=== PATIENT | female | born 1950 | race Two or more races ===

== ENCOUNTER → 2019-11-27 | Day surgery (SDC) | payer MEDICARE, MEDICAID ==
[2019-11-26 14:32] LABS: Basophils # (auto) 0.1 10 ^3/uL (0-0.2); Basophils % (auto) 0.5 % (0.0-2.0); Eosinophils # (auto) 0 10 ^3/uL (0-0.8); Eosinophils % (auto) 0.4 % (0.0-7.0); Hemoglobin 12.2 g/dL (12.2-16.2); Lymphocytes % (auto) 15.9 % (10.0-50.0); Mean Corpuscular Hemoglobin 31.7 pg (28.0-32.0); Mean Corpuscular Hgb Conc. 33.9 g/dL (32.0-36.0); Mean Corpuscular Volume 93.5 fL (80.0-100.0); Monocytes # (auto) 0.9 10 ^3/uL (0-1.3); Monocytes % (auto) 7.3 % (0.0-12.0); Neutrophils # (auto) 9.5 10 ^3/uL (1.6-8.6); Neutrophils % (auto) 75.9 % (37.0-80.0); Platelet Count (auto) 201 10^3/uL (140-450); Red Blood Cells 3.86 10^6/uL (4.0-5.20); Red Cell Distribution Width 13.9 % (11.8-14.3); White Blood Cell 12.5 10^3/uL (4.4-10.8)
[2019-11-26 14:51] LABS: INR 1.04 (0.9-1.15); Partial Thromboplastin Time 32.5 sec (23.64-32.05)
[~2019-11-27] VITALS: Ht 170.2 cm; Wt 78.9 kg
[~2019-11-27] MED LIST: CALC0.5C PO; ESCI10TA PO; LEVO150C2 PO; LIDOCAINE VISCOUS 2% 15ML UD ONE; MIDAZOLAM HCL 5 MG/ML-1ML VIAL ONE; PANT40TA2 PO; SODIUM CHLORIDE LOCK 10 ML ONE; diphenhdrAMINE HCL 50 MG/1 ML VL ONE; fentaNYL CITRATE 100 MCG/2 ML VL ONE
[2019-11-27 10:20] VITALS: BP 104/63
== END | disposition home or self-care (01) ==
LOC: GI 08:41
PROVIDERS: ATTEND Internal Medicine Gastroenterology
DX: K29.50 Unspecified chronic gastritis without bleeding (principal); K44.9 Diaphragmatic hernia without obstruction or gangrene; Z98.890 Other specified postprocedural states; Z88.8 Allergy status to other drugs, medicaments and biological substances; Z85.850 Personal history of malignant neoplasm of thyroid; Z79.899 Other long term (current) drug therapy
CPT/HCPCS: 36415; 43239; 85025; 85610; 85730; 88305; 88342; J1200; J2250; J3010; J7030

== ENCOUNTER → 2019-12-25 | Outpatient (CLI) | payer MEDICARE, MEDICAID ==
[~2019-12-25] MED LIST changes: -LIDOCAINE VISCOUS 2% 15ML UD ONE; -MIDAZOLAM HCL 5 MG/ML-1ML VIAL ONE; -SODIUM CHLORIDE LOCK 10 ML ONE; -diphenhdrAMINE HCL 50 MG/1 ML VL ONE; -fentaNYL CITRATE 100 MCG/2 ML VL ONE
[2019-12-25 14:14] LABS: Basophils # (auto) 0.1 10 ^3/uL (0-0.2); Basophils % (auto) 0.9 % (0.0-2.0); Eosinophils # (auto) 0.2 10 ^3/uL (0-0.8); Eosinophils % (auto) 2.8 % (0.0-7.0); Hematocrit 37.8 % (36.0-46.0); Hemoglobin 12.8 g/dL (12.2-16.2); Lymphocytes # (auto) 2.6 10 ^3/uL (0.4-5.4); Lymphocytes % (auto) 40.1 % (10.0-50.0); Mean Corpuscular Hemoglobin 31.6 pg (28.0-32.0); Mean Corpuscular Hgb Conc. 33.8 g/dL (32.0-36.0); Mean Corpuscular Volume 93.4 fL (80.0-100.0); Monocytes # (auto) 0.4 10 ^3/uL (0-1.3); Monocytes % (auto) 6.5 % (0.0-12.0); Neutrophils # (auto) 3.2 10 ^3/uL (1.6-8.6); Neutrophils % (auto) 49.7 % (37.0-80.0); Platelet Count (auto) 221 10^3/uL (140-450); Red Blood Cells 4.04 10^6/uL (4.0-5.20); Red Cell Distribution Width 14.6 % (11.8-14.3); White Blood Cell 6.4 10^3/uL (4.4-10.8)
[2019-12-25 14:23] LABS: Urine Bacteria FEW /hpf (None Seen); Urine Blood Negative /uL (Negative); Urine Specific Gravity 1.004 (1.001-1.035); Urine WBC 5 /hpf (0 - 5)
[2019-12-25 14:28] LABS: Albumin 3.5 g/dL (3.4-5.0); Calcium 9.3 mg/dL (8.5-10.1)
[2019-12-25 14:30] LABS: BUN/Creatinine Ratio 11.8
[2019-12-25 14:33] LABS: Bilirubin, Total 0.4 mg/dL (0.2-1.0); Total Protein 7.4 g/dL (6.4-8.2)
== END | disposition home or self-care (01) ==
LOC: LAB 14:02
PROVIDERS: ATTEND Internal Medicine Gastroenterology
DX: R19.7 Diarrhea, unspecified (principal); R10.9 Unspecified abdominal pain
CPT/HCPCS: 36415; 80053; 81001; 85025; 87086

== ENCOUNTER → 2020-02-26 | Outpatient (CLI) | payer MEDICARE, MEDICAID ==
[2020-02-26 15:35] LABS: Urine Bacteria NONE SEEN /hpf (None Seen); Urine Blood Negative /uL (Negative); Urine Mucus FEW (None Seen); Urine Specific Gravity 1.018 (1.001-1.035); Urine WBC 12 /hpf (0 - 5)
== END | disposition home or self-care (01) ==
LOC: LAB 14:59
PROVIDERS: ATTEND Internal Medicine Gastroenterology
DX: N39.0 Urinary tract infection, site not specified (principal)
CPT/HCPCS: 81001

== ENCOUNTER 2022-03-07 15:43 | Emergency (ER) | payer MEDICARE, MEDICAID ==
[~2022-03-07] VITALS: Ht 170.2 cm; Wt 75.1 kg
[2022-03-07 16:42] LABS: Basophils # (auto) 0 10 ^3/uL (0-0.2); Basophils % (auto) 0.8 % (0.0-2.0); Eosinophils # (auto) 0.1 10 ^3/uL (0-0.8); Eosinophils % (auto) 1.4 % (0.0-7.0); Hematocrit 38.8 % (36.0-46.0); Hemoglobin 12.5 g/dL (12.2-16.2); Lymphocytes # (auto) 1.7 10 ^3/uL (0.4-5.4); Lymphocytes % (auto) 30.9 % (10.0-50.0); Mean Corpuscular Hgb Conc. 32.3 g/dL (32.0-36.0); Mean Corpuscular Volume 92.9 fL (80.0-100.0); Monocytes # (auto) 0.4 10 ^3/uL (0-1.3); Monocytes % (auto) 8.1 % (0.0-12.0); Neutrophils # (auto) 3.2 10 ^3/uL (1.6-8.6); Neutrophils % (auto) 58.8 % (37.0-80.0); Nucleated Red Blood Cells % 0.1 %; Red Blood Cells 4.17 10^6/uL (4.0-5.20); Red Cell Distribution Width 14.2 % (11.8-14.3); White Blood Cell 5.5 10^3/uL (4.4-10.8)
[2022-03-07 17:06] LABS: Albumin 3.7 g/dL (3.4-5.0); BUN/Creatinine Ratio 13.1; Calcium 8.8 mg/dL (8.5-10.1); Magnesium 2.4 mg/dL (1.6-2.6); Potassium 4.2 mmol/L (3.5-5.1)
[2022-03-07 17:07] LABS: Urine Bacteria NONE SEEN /hpf (None Seen); Urine Blood Negative /uL (Negative); Urine Hyaline Cast FEW /lpf (0 - 2); Urine Specific Gravity 1.011 (1.001-1.035); Urine WBC 7 /hpf (0 - 5)
[2022-03-07 17:09] LABS: Bilirubin, Total 0.3 mg/dL (0.2-1.0); Total Protein 7.2 g/dL (6.4-8.2)
[2022-03-07 20:00] VITALS: BP 139/81
== END 2022-03-07 21:57 | disposition home or self-care (01) ==
LOC: ER 15:43
DX: R53.1 Weakness (principal); E78.5 Hyperlipidemia, unspecified; Z88.6 Allergy status to analgesic agent
CPT/HCPCS: 36415; 80053; 81001; 83735; 84484; 85025; 93005

== ENCOUNTER 2022-10-12 19:57 | Inpatient (IN) | payer MEDICARE, MEDICAID ==
[~2022-10-12] VITALS: Ht 170.2 cm; Wt 81.8 kg
[2022-10-12 21:11] LABS: Urine Bacteria NONE SEEN /hpf (None Seen); Urine Blood TRACE /uL (Negative); Urine Specific Gravity 1.007 (1.001-1.035); Urine WBC 33 /hpf (0 - 5)
[2022-10-12 22:10] LABS: Basophils # (auto) 0.1 10 ^3/uL (0-0.2); Basophils % (auto) 0.4 % (0.0-2.0); Eosinophils # (auto) 0.1 10 ^3/uL (0-0.8); Eosinophils % (auto) 0.8 % (0.0-7.0); Hematocrit 37.6 % (36.0-46.0); Hemoglobin 12.8 g/dL (12.2-16.2); Lymphocytes # (auto) 2.4 10 ^3/uL (0.4-5.4); Lymphocytes % (auto) 15.4 % (10.0-50.0); Mean Corpuscular Hemoglobin 31.7 pg (28.0-32.0); Mean Corpuscular Hgb Conc. 34.1 g/dL (32.0-36.0); Mean Corpuscular Volume 92.9 fL (80.0-100.0); Monocytes # (auto) 1.1 10 ^3/uL (0-1.3); Monocytes % (auto) 7.2 % (0.0-12.0); Neutrophils % (auto) 76.2 % (37.0-80.0); Nucleated Red Blood Cells % 0.2 %; Red Blood Cells 4.05 10^6/uL (4.0-5.20); Red Cell Distribution Width 13.5 % (11.8-14.3); White Blood Cell 15.7 10^3/uL (4.4-10.8)
[2022-10-12 22:23] LABS: Alanine Aminotransferase 29 U/L (13-56); Albumin 3.5 g/dL (3.4-5.0); Anion Gap 5 (5-15); Aspartate Aminotransferase 22 U/L (15-37); BUN/Creatinine Ratio 13.7; Blood Urea Nitrogen 40 mg/dL (7-18); Carbon Dioxide 36 mmol/L (21-32); Chloride 98 mmol/L (98-107); GFR African American 20 mL/min; GFR Non-African American 17 mL/min; Glucose 124 mg/dL (74-106); Lipase 264 U/L (73-393); Potassium 3.8 mmol/L (3.5-5.1); Sodium 139 mmol/L (136-145)
[2022-10-12 22:26] LABS: Alkaline Phosphatase 65 U/L (45-117); Bilirubin, Total 0.3 mg/dL (0.2-1.0); Total Protein 7.8 g/dL (6.4-8.2)
[2022-10-12 22:47] LABS: Calcium 18.7 mg/dL (8.5-10.1)
[2022-10-13] MEDS ORDERED: FUROSEMIDE 100 MG/10ML VIAL IV ONE (01:15)
[2022-10-13] MEDS ORDERED: ACETAMINOPHEN 325 MG TAB PO ONE (03:00)
[2022-10-13] MEDS ORDERED: NITROGLYCERIN 0.4 MG SL TAB SL PRN (07:15)
[2022-10-13] MEDS ORDERED: cefTRIAXone 1GM/50ML D5W 50 ML IV ONE (07:15)
[2022-10-13] MEDS ORDERED: ONDANSETRON HCL 4 MG/2 ML VIAL IV PRN (07:15)
[2022-10-13] MEDS ORDERED: DOCUSATE SOD 100 MG CAP PO PRN (07:15)
[2022-10-13] MEDS ORDERED: MORPHINE SULFATE INJ 2 MG/ml SYRG IV PRN ×2 (07:15)
[2022-10-13 08:08] LABS: Basophils # (auto) 0.1 10 ^3/uL (0-0.2); Basophils % (auto) 0.5 % (0.0-2.0); Eosinophils # (auto) 0.2 10 ^3/uL (0-0.8); Eosinophils % (auto) 1.4 % (0.0-7.0); Hematocrit 38.8 % (36.0-46.0); Hemoglobin 13.2 g/dL (12.2-16.2); Lymphocytes # (auto) 2.2 10 ^3/uL (0.4-5.4); Lymphocytes % (auto) 17.7 % (10.0-50.0); Mean Corpuscular Hemoglobin 31.5 pg (28.0-32.0); Mean Corpuscular Hgb Conc. 33.9 g/dL (32.0-36.0); Mean Corpuscular Volume 92.9 fL (80.0-100.0); Monocytes % (auto) 7.9 % (0.0-12.0); Neutrophils # (auto) 9.1 10 ^3/uL (1.6-8.6); Neutrophils % (auto) 72.5 % (37.0-80.0); Red Blood Cells 4.18 10^6/uL (4.0-5.20); Red Cell Distribution Width 13.7 % (11.8-14.3); White Blood Cell 12.6 10^3/uL (4.4-10.8)
[2022-10-13 08:34] LABS: Albumin 3.9 g/dL (3.4-5.0); Potassium 3.8 mmol/L (3.5-5.1)
[2022-10-13 08:38] LABS: BUN/Creatinine Ratio 14.6; Bilirubin, Total 0.4 mg/dL (0.2-1.0); Total Protein 7.7 g/dL (6.4-8.2)
[2022-10-13 08:59] LABS: Calcium 16.2 mg/dL (8.5-10.1)
[2022-10-13] MEDS: SODIUM CHLORIDE 0.9% 1,000 ML IV SCH ×2 (09:27→23:55)
[2022-10-13] MEDS: cefTRIAXone 1GM/50ML D5W 50 ML IV SCH (09:27)
[2022-10-13] MEDS: FAMOTIDINE (10MG/ML) 2ML VL IV SCH (10:49)
[2022-10-13] MEDS: FUROSEMIDE 40 MG/4 ML VIAL IV SCH (10:49)
[2022-10-13] MEDS ORDERED: DIPH25CA29 PO (18:35)
[2022-10-13 20:00] VITALS: BP 124/75
[2022-10-13 20:12] LABS: BUN/Creatinine Ratio 15.9; Potassium 4.1 mmol/L (3.5-5.1)
[2022-10-13 20:15] LABS: Calcium 15.9 mg/dL (8.5-10.1)
[2022-10-13 21:24] LABS: Protein, Urine 21.5 mg/dL (0.0-11.9)
[2022-10-13 21:31] LABS: Urine Bacteria NONE SEEN /hpf (None Seen); Urine Blood Negative /uL (Negative); Urine Hyaline Cast MOD /lpf (0 - 2); Urine Specific Gravity 1.009 (1.001-1.035); Urine WBC 9 /hpf (0 - 5)
[2022-10-13 22:00] VITALS: BP 154/79
[2022-10-14 05:00] VITALS: BP 129/67
[2022-10-14 07:06] LABS: Basophils # (auto) 0 10 ^3/uL (0-0.2); Basophils % (auto) 0.4 % (0.0-2.0); Eosinophils # (auto) 0.1 10 ^3/uL (0-0.8); Eosinophils % (auto) 1.4 % (0.0-7.0); Hematocrit 38.1 % (36.0-46.0); Lymphocytes # (auto) 2.2 10 ^3/uL (0.4-5.4); Lymphocytes % (auto) 21.4 % (10.0-50.0); Mean Corpuscular Hemoglobin 31.8 pg (28.0-32.0); Mean Corpuscular Hgb Conc. 34.2 g/dL (32.0-36.0); Monocytes # (auto) 0.6 10 ^3/uL (0-1.3); Monocytes % (auto) 6.2 % (0.0-12.0); Neutrophils # (auto) 7.4 10 ^3/uL (1.6-8.6); Neutrophils % (auto) 70.6 % (37.0-80.0); Red Blood Cells 4.09 10^6/uL (4.0-5.20); Red Cell Distribution Width 13.8 % (11.8-14.3); White Blood Cell 10.4 10^3/uL (4.4-10.8)
[2022-10-14 07:19] LABS: Albumin 3.6 g/dL (3.4-5.0); Anion Gap 6 (5-15); Blood Urea Nitrogen 50 mg/dL (7-18); Carbon Dioxide 36 mmol/L (21-32); Chloride 97 mmol/L (98-107); Glucose 114 mg/dL (74-106); Potassium 3.2 mmol/L (3.5-5.1); Sodium 139 mmol/L (136-145)
[2022-10-14 07:22] LABS: Alanine Aminotransferase 26 U/L (13-56); Alkaline Phosphatase 63 U/L (45-117); Aspartate Aminotransferase 18 U/L (15-37); BUN/Creatinine Ratio 16.2; Bilirubin, Direct < 0.1 mg/dL (0-0.2); Bilirubin, Total 0.4 mg/dL (0.2-1.0); GFR African American 19 mL/min; GFR Non-African American 16 mL/min; Total Protein 7.6 g/dL (6.4-8.2); Uric Acid 8.9 mg/dL (2.6-6.0)
[2022-10-14 07:31] LABS: Calcium 14.5 mg/dL (8.5-10.1)
[2022-10-14 08:00] VITALS: BP 129/67
[2022-10-14 09:00] VITALS: BP 131/75
[2022-10-14] MEDS: FAMOTIDINE (10MG/ML) 2ML VL IV SCH (09:34)
[2022-10-14] MEDS: FUROSEMIDE 40 MG/4 ML VIAL IV SCH (09:35)
[2022-10-14] MEDS: cefTRIAXone 1GM/50ML D5W 50 ML IV SCH (09:43)
[2022-10-14 13:00] VITALS: BP 134/66
[2022-10-14] MEDS ORDERED: FUROSEMIDE 40 MG/4 ML VIAL IV ONE (14:15)
[2022-10-14 17:00] VITALS: BP 154/70
[2022-10-14] MEDS: SODIUM CHLORIDE 0.9% 1,000 ML IV SCH (17:30)
[2022-10-14] MEDS ORDERED: LEVOTHYROXINE SODIUM 100 MCG TAB PO ONE (17:45)
[2022-10-14 22:00] VITALS: BP 159/93
[2022-10-14] MEDS: hydrALAZINE HCL 20 MG/ML VL IV PRN (22:34)
[2022-10-14] MEDS: TEMAZEPAM 15 MG CAP PO PRN (23:19)
[2022-10-14 23:52] LABS: Alcohol, Urine < 3.0 mg/dL (0-10); Amphetamine Screen, Urine NEGATIVE (NEGATIVE); Barbiturate Scree,Urine NEGATIVE (NEGATIVE); Benzodiazephine Screen, Urine NEGATIVE (NEGATIVE); Cannabinoid Screen, Urine NEGATIVE (NEGATIVE); Cocaine Screen, Urine NEGATIVE (NEGATIVE); Opiate Scree,Urine NEGATIVE (NEGATIVE); Phencyclidine Screen, Urine NEGATIVE (NEGATIVE)
[2022-10-15 05:00] VITALS: BP 141/71
[2022-10-15] MEDS: SODIUM CHLORIDE 0.9% 1,000 ML IV SCH ×3 (05:49→16:51)
[2022-10-15] MEDS ORDERED: LEVOTHYROXINE SODIUM 100 MCG TAB PO SCH (07:00)
[2022-10-15 08:00] VITALS: BP 129/54
[2022-10-15] MEDS: FUROSEMIDE 40 MG/4 ML VIAL IV SCH (09:28)
[2022-10-15] MEDS: cefTRIAXone 1GM/50ML D5W 50 ML IV SCH (09:29)
[2022-10-15] MEDS: FAMOTIDINE (10MG/ML) 2ML VL IV SCH (09:29)
[2022-10-15] MEDS ORDERED: PAMIDRONATE DISODIUM 90 MG in SOD CHL 0.45% 1,000 ML IV ONE (10:15)
[2022-10-15 11:10] LABS: Potassium 3.2 mmol/L (3.5-5.1)
[2022-10-15 11:15] LABS: Albumin 3.6 g/dL (3.4-5.0); BUN/Creatinine Ratio 15.2; Bilirubin, Total 0.4 mg/dL (0.2-1.0); Calcium 11.4 mg/dL (8.5-10.1); Total Protein 7.2 g/dL (6.4-8.2)
[2022-10-15 12:00] VITALS: BP 122/73
[2022-10-15 16:00] VITALS: BP 130/90
[2022-10-15 22:00] VITALS: BP 124/61
[2022-10-15] MEDS ORDERED: CALCITONIN 400unit/2ml Vial (200unit/ml) SC SCH (22:00)
[2022-10-16] MEDS: ACETAMINOPHEN 325 MG TAB PO PRN (01:30)
[2022-10-16] MEDS: SODIUM CHLORIDE 0.9% 1,000 ML IV SCH ×4 (03:18→23:24)
[2022-10-16 05:00] VITALS: BP 101/51
[2022-10-16] MEDS: LEVOTHYROXINE SODIUM 112 MCG TAB PO SCH (06:12)
[2022-10-16 06:20] LABS: Albumin 3.1 g/dL (3.4-5.0); Calcium 10.3 mg/dL (8.5-10.1)
[2022-10-16 06:25] LABS: Bilirubin, Total 0.2 mg/dL (0.2-1.0); Total Protein 6.4 g/dL (6.4-8.2)
[2022-10-16 06:37] LABS: Potassium 2.6 mmol/L (3.5-5.1)
[2022-10-16] MEDS ORDERED: POTASSIUM CHL 20 Meq TABLET PO ONE (06:45)
[2022-10-16 08:08] LABS: Immunoglobulin G, Serum 1284 mg/dL (586-1602)
[2022-10-16 09:00] VITALS: BP 149/52
[2022-10-16] MEDS: FAMOTIDINE (10MG/ML) 2ML VL IV SCH (09:12)
[2022-10-16] MEDS: cefTRIAXone 1GM/50ML D5W 50 ML IV SCH (09:12)
[2022-10-16 13:19] VITALS: BP 142/69
[2022-10-16] MEDS: hydrALAZINE HCL 20 MG/ML VL IV PRN (21:16)
[2022-10-16 22:00] VITALS: BP 156/76
[2022-10-16] MEDS: TEMAZEPAM 15 MG CAP PO PRN (22:13)
[2022-10-16] MEDS ORDERED: CITALOPRAM HYDROBR 20 MG TAB PO SCH (23:15)
[2022-10-17 05:00] VITALS: BP 139/67
[2022-10-17] MEDS: LEVOTHYROXINE SODIUM 112 MCG TAB PO SCH (06:04)
[2022-10-17] MEDS: SODIUM CHLORIDE 0.9% 1,000 ML IV SCH (06:19)
[2022-10-17] MEDS ORDERED: ESCITALOPRAM 10 MG TABLETS PO ONE (06:30)
[2022-10-17 06:52] LABS: Albumin 2.9 g/dL (3.4-5.0); BUN/Creatinine Ratio 12.4; Bilirubin, Total 0.3 mg/dL (0.2-1.0); Calcium 8.7 mg/dL (8.5-10.1); Total Protein 5.6 g/dL (6.4-8.2)
[2022-10-17 09:10] VITALS: BP 152/68
[2022-10-17] MEDS: cefTRIAXone 1GM/50ML D5W 50 ML IV SCH (09:13)
[2022-10-17] MEDS: ACETAMINOPHEN 325 MG TAB PO PRN (09:14)
[2022-10-17] MEDS: FAMOTIDINE (10MG/ML) 2ML VL IV SCH (09:14)
[2022-10-17] MEDS ORDERED: POTASSIUM CHL 20 Meq TABLET PO ONE (09:30)
[2022-10-17] MEDS ORDERED: LOPERAMIDE HCL 2 MG CAP/TAB PO ONE (11:45)
[2022-10-17 11:55] VITALS: BP 152/72
[2022-10-17 13:00] VITALS: BP 162/70
== END 2022-10-17 15:52 | disposition home or self-care (01) | DRG 872 ==
LOC: ER 19:57 → TELE 10-13 07:09 → TELE-CENTR 10-13 17:42
PROVIDERS: ADMIT Nurse Practitioner Family; ATTEND Family Medicine
DX: A41.9 Sepsis, unspecified organism (principal); N17.9 Acute kidney failure, unspecified; N39.0 Urinary tract infection, site not specified; E87.0 Hyperosmolality and hypernatremia; E83.52 Hypercalcemia; K52.9 Noninfective gastroenteritis and colitis, unspecified; K57.90 Diverticulosis of intestine, part unspecified, without perforation or abscess without bleeding; E89.0 Postprocedural hypothyroidism; N18.9 Chronic kidney disease, unspecified; G40.909 Epilepsy, unspecified, not intractable, without status epilepticus; E87.6 Hypokalemia; Z60.2 Problems related to living alone; I12.9 Hypertensive chronic kidney disease with stage 1 through stage 4 chronic kidney disease, or unspecified chronic kidney disease; E78.00 Pure hypercholesterolemia, unspecified; Z20.822 Contact with and (suspected) exposure to COVID-19; E78.5 Hyperlipidemia, unspecified; Z88.5 Allergy status to narcotic agent; Z80.0 Family history of malignant neoplasm of digestive organs; Z82.49 Family history of ischemic heart disease and other diseases of the circulatory system; Z85.850 Personal history of malignant neoplasm of thyroid; Z87.19 Personal history of other diseases of the digestive system; Z90.49 Acquired absence of other specified parts of digestive tract
CPT/HCPCS: 36415; 74176; 80048; 80053; 80076; 80307; 80320; 81001; 82306; 82330; 82570; 82652; 82784; 83690; 83883; 83970; 84155; 84156; 84165; 84166; 84300; 84443; 84484; 84550; 85025; 86334; 87040; 87086; 87426; 93005; 96361; 96374; 96375; G0378; J0696; J3490

== ENCOUNTER → 2022-12-06 | Outpatient (CLI) | payer MEDICARE, MEDICAID ==
[~2022-12-06] MED LIST changes: +DIPH25CA29 PO
[2022-12-06 14:46] LABS: Urine Bacteria NONE SEEN /hpf (None Seen); Urine Blood Negative /uL (Negative); Urine Specific Gravity 1.007 (1.001-1.035); Urine WBC <1 /hpf (0 - 5)
== END | disposition home or self-care (01) ==
LOC: LAB 14:26
PROVIDERS: ATTEND Urology
DX: N39.0 Urinary tract infection, site not specified (principal)
CPT/HCPCS: 81001; 87086

== ENCOUNTER 2023-03-07 18:27 | Emergency (ER) | payer MEDICARE, MEDICAID ==
[~2023-03-07] VITALS: Ht 170.2 cm; Wt 79.1 kg
[~2023-03-07 18:27] MED LIST changes: +DIPH-753 PO; -DIPH25CA29 PO
[2023-03-07] MEDS ORDERED: HYDROcodone-ACET 5/325MG TAB PO ONE (20:30)
[2023-03-07] MEDS ORDERED: ONDANSETRON ODT 4 MG TAB PO ONE (20:30)
[2023-03-07] MEDS ORDERED: IPRATROPIUM BROM 0.5 MG/2.5ML INH SOL NEB ONE (21:00)
[2023-03-07] MEDS ORDERED: ALBUTEROL SULF 2.5 MG/0.5ML(0.5%) NEB SOLN NEB ONE (21:00)
[2023-03-07] MEDS ORDERED: DexAMETHasone SOD PHOS 10MG/1ML VIAL INJ IM ONE (21:00)
[2023-03-07 22:26] VITALS: BP 113/73
[2023-03-07] MEDS ORDERED: HYDR-4902 PO (22:28)
[2023-03-07] MEDS ORDERED: AZITTAB PO (22:28)
[2023-03-07] MEDS ORDERED: ZOFR4T PO (22:28)
[2023-03-07] MEDS ORDERED: PRED20TA2 PO (22:28)
== END 2023-03-07 22:40 | disposition home or self-care (01) ==
LOC: ER 18:27
DX: U07.1 COVID-19 (principal); J12.82 Pneumonia due to coronavirus disease 2019; J45.909 Unspecified asthma, uncomplicated; E78.5 Hyperlipidemia, unspecified; I10 Essential (primary) hypertension
CPT/HCPCS: 36415; 70450; 71045; 87426; 94640; 96372; 99285; J1100; J7644; Q0162

== ENCOUNTER 2023-06-06 10:34 | Day surgery (SDC) | payer MEDICARE, MEDICAID ==
[2023-06-04 15:10] LABS: Urine Bacteria NONE SEEN /hpf (None Seen); Urine Blood TRACE /uL (Negative); Urine Clarity Clear (Clear); Urine Color Yellow (Yellow); Urine Protein, UAD Negative (Negative); Urine Specific Gravity 1.014 (1.001-1.035); Urine Urobilinogen Normal (Negative); Urine WBC 1 /hpf (0 - 5); Urine pH 5.5 (5.0-8.0)
[2023-06-04 15:13] LABS: Basophils # (auto) 0 10 ^3/uL (0-0.2); Basophils % (auto) 0.8 % (0.0-2.0); Eosinophils # (auto) 0.2 10 ^3/uL (0-0.8); Eosinophils % (auto) 3.1 % (0.0-7.0); Hematocrit 39.1 % (36.0-46.0); Hemoglobin 13.2 g/dL (12.2-16.2); Lymphocytes # (auto) 2.1 10 ^3/uL (0.4-5.4); Lymphocytes % (auto) 35.8 % (10.0-50.0); Mean Corpuscular Hemoglobin 31.3 pg (28.0-32.0); Mean Corpuscular Hgb Conc. 33.7 g/dL (32.0-36.0); Mean Corpuscular Volume 92.8 fL (80.0-100.0); Monocytes # (auto) 0.4 10 ^3/uL (0-1.3); Monocytes % (auto) 6.5 % (0.0-12.0); Neutrophils # (auto) 3.1 10 ^3/uL (1.6-8.6); Neutrophils % (auto) 53.8 % (37.0-80.0); Red Blood Cells 4.21 10^6/uL (4.0-5.20); Red Cell Distribution Width 14.5 % (11.8-14.3); White Blood Cell 5.8 10^3/uL (4.4-10.8)
[2023-06-04 15:19] LABS: INR 1.03 (0.9-1.15); Partial Thromboplastin Time 29.3 SEC (24.5-34.5); Prothrombin Time 10.8 sec (9.3-11.8)
[2023-06-04 15:41] LABS: Alanine Aminotransferase 21 U/L (7-40); Albumin 4.2 g/dL (3.2-4.8); Alkaline Phosphatase 66 U/L (46-116); Anion Gap 5 (5-15); Aspartate Aminotransferase 23 U/L (13-40); BUN/Creatinine Ratio 19.6 (10.0-20.0); Bilirubin, Total 0.6 mg/dL (0.2-1.0); Blood Urea Nitrogen 19 mg/dL (9-23); Calcium 8.9 mg/dL (8.7-10.4); Carbon Dioxide 31 mmol/L (20-30); Chloride 105 mmol/L (98-107); Glucose 93 mg/dL (74-106); Potassium 3.7 mmol/L (3.5-5.1); Sodium 141 mmol/L (136-145)
[~2023-06-06] VITALS: Ht 165.1 cm; Wt 77.1 kg
[~2023-06-06 10:34] MED LIST changes: +ASPI81CH59 PO; +ATOR20TA50 PO; +CALC-179 OR; +CARV3.1240 PO; +CHOLTAB12 PO; +CYAN-17 PO; -DIPH-753 PO; +FEXO-42 PO; +LEVO112T4 PO; -LEVO150C2 PO; +MAGN250T8 PO; +MULT-732 OR
[2023-06-06] MEDS ORDERED: CIPROFLOXACIN 400MG/200ML 200 ML IV ONE (11:04)
[2023-06-06] MEDS ORDERED: fentaNYL CITRATE 100 MCG/2 ML VL ONE (12:12)
[2023-06-06] MEDS ORDERED: MIDAZOLAM HCL 2MG/2ML 2ml VIAL (1mg/ml) ONE (12:13)
[2023-06-06] MEDS ORDERED: SUCCINYLCHOLINE CHLORIDE 20 MG/ML 10ML VIAL IV ONE (12:35)
[2023-06-06] MEDS ORDERED: PROPOFOL 10 MG/ML 20 ML IV ONE (13:05)
[2023-06-06] MEDS ORDERED: ONDANSETRON HCL 4 MG/2 ML VIAL ONE (13:05)
[2023-06-06 13:19] VITALS: TEMP 97.8; O2SAT 95
[2023-06-06] MEDS ORDERED: HYDROmorphone HCL 2 MG/ML VL/or syr IV PRN (14:00)
[2023-06-06] MEDS ORDERED: ONDANSETRON HCL 4 MG/2 ML VIAL IV PRN (14:00)
[2023-06-06] MEDS ORDERED: LIDOCAINE 2% (LOCAL ANESTH.) PF 5ml SDV ONE (14:09)
[2023-06-06] MEDS ORDERED: IOHEXOL 300 MG/ML 100ML BOTTLE IJ ONE (15:15)
[2023-06-06 15:28] VITALS: BP 108/58; PULSE 52; RESP 14; O2SAT 95
== END 2023-06-06 15:47 | disposition home or self-care (01) ==
LOC: SUR 10:34
PROVIDERS: ATTEND Urology
DX: N20.0 Calculus of kidney (principal)
CPT/HCPCS: 36415; 50590; 80053; 81001; 85025; 85610; 85730; 87086; 88307; 88342; J0330; J0744; J2001; J2250; J2405; J2704; J3010; Q9967